=== PATIENT | male | born 1955 | race Caucasian/White ===

== ENCOUNTER → 2017-12-23 11:20 | Outpatient (CLI) | payer BC, SELFPAY ==
--- NOTE | 2017-12-23 11:23 | DI.RAD.S_ITS ---
PROCEDURE: XR KUB INDICATIONS: 62-year-old male with acute flank pain. TECHNIQUE: One view of the abdomen acquired. COMPARISON: None. FINDINGS: Surgical changes and devices: None. Bowel: Bowel gas pattern is normal. Soft tissues: No suspicious abdominal calcifications. Much of the right kidney is obscured by overlying stool. Visualized solid organ contours appear normal in size. Bones: No suspicious bony lesions. IMPRESSION: No radiographic explanation for flank pain. If there is persistent clinical concern for occult kidney stones, consider noncontrast CT KUB for more sensitive evaluation. Dictated by: Jordan Rebolledo M.D. on 12/23/2017 at 12:21 Approved by: Jordan Rebolledo M.D. on 12/23/2017 at 12:22
== END ==
PROVIDERS: Visit Provider Physician Assistant
DX: R10.9 Unspecified abdominal pain (principal)
CPT/HCPCS: 74018